=== PATIENT | female | born 1930 | race Caucasian/White ===

== ENCOUNTER 2018-02-08 10:16 | Emergency (ER) | payer OTHER ==
[~2018-02-08] VITALS: Ht 144.8 cm; Wt 64.4 kg
[~2018-02-08 10:16] MED LIST: ISOS30TE34 PO; SULI200T4 PO; VALS320T2 PO
[2018-02-08 10:39] VITALS: BP 209/101
--- NOTE | 2018-02-08 11:07 | NUR ---
87/F bib daughter with c/o HIGH BP x today. PT ALSO C/O CHRONIC ATIF KNEE PAIN 10/10 D/T RA. Patient referred over from Urgent, bj=[id number]/110. Patient denies any headache, n/v, changes in vision, or dizziness. No facial/smile asymmetry noted. Patient with steady gait with personal cane. GCS=15. Clear speech with full sentences.Patient sts she did not take bp medication today. hx--htn, arthritis. SKIN IS PINK/WARM/DRY; AAOX4 WITH EVEN AND STEADY GAIT; LUNGS CLEAR BL; HR EVEN AND REGULAR; PATIENT STATES PAIN OF 10/10 AT THIS TIME;PATIENT POSITIONED FOR COMFORT; HOB ELEVATED; BEDRAILS UP X2; BED DOWN. ER MD MADE AWARE OF PT STATUS.
--- NOTE | 2018-02-08 11:13 | NUR ---
Patient being evaluated by DR WAN at bedside.
[2018-02-08] MEDS ORDERED: cloNIDine 0.1 MG TAB PO ONE (11:15)
[2018-02-08] MEDS ORDERED: LORazepam 1 MG TAB PO ONE (11:15)
--- NOTE | 2018-02-08 12:21 | NUR ---
RETURNED FROM CT VIA ESTRELLA ACCOMPANIED BY [id number].
--- NOTE | 2018-02-08 12:28 | NUR ---
Von wei in ED - 02/08/18 at 1229 by [email or web address] PT IS UNABLE TO PROVIDE URINE AT THIS TIME.
[2018-02-08 12:35] LABS: APPEARANCE,URINE CLEAR (CLEAR); BILIRUBIN,URINE NEGATIVE (NEGATIVE); BLOOD, URINE NEGATIVE (NEGATIVE); COLOR,URINE YELLOW (YELLOW); LEUKOCYTE ESTERASE ,URINE NEGATIVE (NEGATIVE); NITRITE, URINE NEGATIVE (NEGATIVE); UGLUCOSE NEGATIVE (NEGATIVE)
[2018-02-08 13:33] VITALS: BP 138/67
--- NOTE | 2018-02-08 13:33 | NUR ---
Patient discharged with BP 138/67; DENIES VALERO OR DIZZINESS AT THIS TIME. Written and verbal after care instructions given and explained. Patient alert, oriented and verbalized understanding of instructions. Wheel Chair Assisted with to car. All questions addressed prior to discharge. ID band removed. Patient advised to follow up with PMD. Rx of given. Patient educated on indication of medication including possible reaction and side effects. Opportunity to ask questions provided and answered.
== END 2018-02-08 13:33 | disposition home or self-care (01) ==
LOC: MED 10:16
DX: I10 Essential (primary) hypertension (principal); Z79.899 Other long term (current) drug therapy
CPT/HCPCS: 70450; 81003; 99285